=== PATIENT | male | born 1965 | race Caucasian/White ===

== ENCOUNTER 2024-06-20 06:50 | Outpatient (CLI) | payer OTHER, SELFPAY ==
--- NOTE | 2024-06-20 07:05 | MR_ITS ---
WS: [id number] MRI LEFT KNEE NONCONTRAST TECHNIQUE: Axial PD, coronal PD fat sat, coronal PD, sagittal PD, and sagittal PD fat-sat images obta ined. CLINICAL INFORMATION: LEFT KNEE PAIN COMPARISON: None. FINDINGS: Distal quadriceps and patella tendons are intact. Normal ACL and PCL. Moderate tricompartmental arthr itis. Grade III chondromalacia patella. Small suprapatellar effusion. Normal lateral meniscus. Periph eral extrusion of the medial meniscus. Complex tear involving the posterior horn medial meniscus exte nding to the articular surface. Blunting of the posterior horn. Tear extends to the peripheral articu lar surface and meniscal root. Normal bone marrow signal in the femoral condyles and tibial plateau. Normal fibula head. Normal medi al and lateral collateral ligaments. Normal popliteal fossa. MR/MR knee LT wo con* [id number] IMPRESSION: 1. ACL and PCL appear intact. 2. Complex tear involving the posterior horn medial meniscus extending to the peripheral articular surface and meniscal root. Blunting of the posterior horn. 3. Medial and lateral collateral ligaments appear intact. 4. Moderate tricompartmental arthritis. 5. Grade III chondromalacia patella [facility] grading: grade III: partial-thickness cartilage loss with focal ulcer ation
== END 2024-06-20 06:51 | disposition home or self-care (01) ==
LOC: RAD 06:53
PROVIDERS: Visit Provider Nurse Practitioner Family
DX: M23.222 Derangement of posterior horn of medial meniscus due to old tear or injury, left knee (principal); M17.12 Unilateral primary osteoarthritis, left knee; M22.42 Chondromalacia patellae, left knee
CPT/HCPCS: 73721